=== PATIENT | male | born 1965 | race African-American/Black ===

== ENCOUNTER 2018-12-22 13:55 | Observation (INO) | payer MEDICARE, OTHER, MEDICAID ==
[2018-12-22] MEDS: DICLOFENAC SODIUM 1% GEL 100 GM TUBE TP
[2018-12-22] MEDS: ASPIRIN 325 MG TAB PO (15:10)
[2018-12-22] MEDS: SOD CHLORIDE 0.9% 1,000 ML IV (15:10)
[2018-12-22 15:16] LABS: ADD MAN DIFF? NO
[2018-12-22] MEDS: NICARDipine HCL 30 MG CAPSULE PO (15:20)
[2018-12-22 15:23] LABS: EOSINOPHILS # 0.1 10^3/ul (0.0-0.5); EOSINOPHILS % 2.5 % (0.0-7.0); HEMOGLOBIN 13.5 g/dl (14.0-18.0); LYMPHOCYTES # 1.8 10^3/ul (0.8-2.9); LYMPHOCYTES % 44.2 % (15.0-51.0); MEAN CORPUSCULAR HEMOGLOBIN 29.5 pg (29.0-33.0); MEAN CORPUSCULAR HGB CONC 32.1 g/dl (32.0-37.0); MEAN CORPUSCULAR VOLUME 91.9 fl (82.0-101.0); MEAN PLATELET VOLUME 10.6 fl (7.4-10.4); MONOCYTE # 0.2 10^3/ul (0.3-0.9); MONOCYTES % 5.7 % (0.0-11.0); NEUTROPHIL # 1.9 10^3/ul (1.6-7.5); NEUTROPHILS % 46.6 % (39.0-77.0); PLATELET COUNT 196 10^3/UL (140-415); RED BLOOD COUNT 4.57 10^6/ul (4.70-6.10)
[2018-12-22 15:23] LABS: WHITE BLOOD COUNT 4.1 10^3/ul (4.8-10.8)
[2018-12-22 15:32] LABS: HEMOGLOBIN A1C 5.1 % (0-5.9)
[2018-12-22 15:38] LABS: INR 0.89; PROTIME 12.2 Sec (11.9-14.9)
[2018-12-22 15:39] LABS: PARTIAL THROMBOPLASTIN TIME 31.6 Sec (23.0-35.0)
[2018-12-22 15:44] LABS: ALANINE AMINOTRANSFERASE 35 IU/L (13-69); ALBUMIN 4.3 g/dl (3.3-4.9); ALBUMIN/GLOBULIN RATIO 1.22; ALKALINE PHOSPHATASE 43 IU/L (42-121); ANION GAP 6 (5-13); ASPARTATE AMINO TRANSFERASE 35 IU/L (15-46); BILIRUBIN,INDIRECT 0.6 mg/dl (0-1.1); BILIRUBIN,TOTAL 0.6 mg/dl (0.2-1.3); BLOOD UREA NITROGEN 11 mg/dl (7-20); CALCIUM 9.7 mg/dl (8.4-10.2); CARBON DIOXIDE 35 mmol/L (21-31); CHLORIDE 101 mmol/L (97-110); CHOL/HDL RATIO 1.8 RATIO; CHOLESTEROL 115 mg/dl (100-200); CREATININE 0.19 mg/dl (0.61-1.24); Estimated GFR > 60 mL/min (>60); GLUCOSE 85 mg/dl (70-220); HDL CHOLESTEROL 62 mg/dl (28-71); LDL CHOLESTEROL,CALCULATED 36 mg/dl; SODIUM 142 mmol/L (135-144); TOTAL PROTEIN 7.8 g/dl (6.1-8.1); TRIGLYCERIDES 83 mg/dl (0-149)
[2018-12-22 15:55] LABS: TROPONIN-I < 0.012 ng/ml (0.000-0.120)
[2018-12-22] MEDS ORDERED: IOHEXOL 100 ML (16:14)
[2018-12-22] MEDS ORDERED: SOD CHLORIDE 0.9% 100 ML (16:14)
[2018-12-22] MEDS ORDERED: SOD CHLORIDE 0.9% 1,000 ML IV (18:28)
[2018-12-22] MEDS ORDERED: HYDROCODONE/APAP (5/325) TAB PO (18:30)
[2018-12-22] MEDS ORDERED: ONDANSETRON 4 MG INJ IV ×2 (18:30)
[2018-12-22] MEDS ORDERED: NACL 0.9% 3 ML SYG IV (18:30)
[2018-12-22] MEDS ORDERED: ACETAMINOPHEN 325 MG TAB PO ×2 (18:30)
[2018-12-22] MEDS ORDERED: hydrALAzine 20 MG INJ IV (19:00)
[2018-12-22] MEDS: ATORVASTATIN 80 MG TAB PO (22:17)
[2018-12-22] MEDS: OXYCODONE/ACETAMINOPHEN (10/325) TAB PO (22:18)
[2018-12-23 05:16] LABS: ADD MAN DIFF? NO
[2018-12-23 05:22] LABS: BASOPHIL # 0.1 10^3/ul (0.0-0.1); EOSINOPHILS # 0.1 10^3/ul (0.0-0.5); EOSINOPHILS % 1.9 % (0.0-7.0); HEMATOCRIT 43.8 % (42.0-52.0); LYMPHOCYTES # 3.1 10^3/ul (0.8-2.9); LYMPHOCYTES % 46.2 % (15.0-51.0); MEAN CORPUSCULAR HEMOGLOBIN 29.2 pg (29.0-33.0); MEAN CORPUSCULAR VOLUME 91.3 fl (82.0-101.0); MEAN PLATELET VOLUME 10.8 fl (7.4-10.4); MONOCYTE # 0.4 10^3/ul (0.3-0.9); MONOCYTES % 5.5 % (0.0-11.0); NEUTROPHIL # 3.1 10^3/ul (1.6-7.5); NEUTROPHILS % 45.3 % (39.0-77.0); PLATELET COUNT 206 10^3/UL (140-415)
[2018-12-23 05:22] LABS: WHITE BLOOD COUNT 6.8 10^3/ul (4.8-10.8)
[2018-12-23 05:55] LABS: ALANINE AMINOTRANSFERASE 29 IU/L (13-69); ALBUMIN 4.4 g/dl (3.3-4.9); ALBUMIN/GLOBULIN RATIO 1.41; ALKALINE PHOSPHATASE 42 IU/L (42-121); ANION GAP 7 (5-13); ASPARTATE AMINO TRANSFERASE 44 IU/L (15-46); BILIRUBIN,INDIRECT 0.9 mg/dl (0-1.1); BILIRUBIN,TOTAL 0.9 mg/dl (0.2-1.3); BLOOD UREA NITROGEN 9 mg/dl (7-20); CALCIUM 9.8 mg/dl (8.4-10.2); CARBON DIOXIDE 33 mmol/L (21-31); CHLORIDE 103 mmol/L (97-110); CREATININE 0.24 mg/dl (0.61-1.24); Estimated GFR > 60 mL/min (>60); GLUCOSE 81 mg/dl (70-220); MAGNESIUM 2.1 mg/dl (1.7-2.5); POTASSIUM 3.9 mmol/L (3.5-5.1); SODIUM 143 mmol/L (135-144); TOTAL PROTEIN 7.5 g/dl (6.1-8.1)
[2018-12-23] MEDS: ALBUTEROL 4 MG TAB PO (09:00)
[2018-12-23] MEDS: DICLOFENAC SODIUM 1% GEL 100 GM TUBE TP ×2 (09:16→21:12)
[2018-12-23] MEDS: ASPIRIN 81 MG TAB PO (09:16)
[2018-12-23] MEDS: ALBUTEROL 2 MG TAB PO (21:00)
[2018-12-23] MEDS ORDERED: ALBUTEROL 2 MG TAB PO (21:00)
[2018-12-23] MEDS: OXYCODONE/ACETAMINOPHEN (10/325) TAB PO (21:15)
[2018-12-23 22:36] LABS: ADD UMIC YES; UR ASCORBIC ACID NEGATIVE (NEGATIVE); UR BACTERIA FEW /HPF (NONE SEEN); UR BILIRUBIN (Dip) NEGATIVE (NEGATIVE); UR BLOOD (Dip) 3+ mg/dL (NEGATIVE); UR CLARITY SLIGHTLY CLOUDY (CLEAR); UR COLOR YELLOW (YELLOW); UR GLUCOSE (Dip) NEGATIVE (NEGATIVE); UR KETONES (Dip) 2+ mg/dL (NEGATIVE); UR LEUKOCYTE ESTERASE (Dip) NEGATIVE Leu/ul (NEGATIVE); UR MUCUS FEW /HPF (NONE SEEN); UR NITRITE (Dip) NEGATIVE (NEGATIVE); UR RBC 80 /HPF (0-5); UR TOTAL PROTEIN (Dip) 1+ mg/dl (NEGATIVE); UR UROBILINOGEN (Dip) NEGATIVE (NEGATIVE); UR WBC 2 /HPF (0-5)
[2018-12-23 22:49] LABS: AMPHETAMINE/METHAMPHETAMINE Negative (NEGATIVE); BARBITURATES Negative (NEGATIVE); BENZODIAZEPINES Negative (NEGATIVE); CANNABINOIDS Negative (NEGATIVE); COCAINE Negative (NEGATIVE); OPIATES Negative (NEGATIVE)
[2018-12-23] MEDS: ATORVASTATIN 80 MG TAB PO (23:04)
[2018-12-23] MEDS: traMADol 50 MG TAB PO (23:04)
[2018-12-24] MEDS: DICLOFENAC SODIUM 1% GEL 100 GM TUBE TP (09:00)
[2018-12-24] MEDS: ALBUTEROL 4 MG TAB PO (09:00)
[2018-12-24] MEDS: ASPIRIN 81 MG TAB PO (09:05)
[2018-12-24 12:00] LABS: ERYTHROCYTE SEDIMENTATION RATE 9 mm/Hr (0-20)
[2018-12-24 15:12] LABS: RAPID PLASMA REAGIN NONREACTIVE (NR)
[2018-12-26 16:57] LABS: PROTEIN C 97 % normal (70-180)
== END 2018-12-24 19:10 | disposition home or self-care (01) ==
LOC: E/R 13:55 → 6WM 18:28
DX: I63.9 Cerebral infarction, unspecified (principal); R47.01 Aphasia; R13.10 Dysphagia, unspecified; D64.9 Anemia, unspecified; E74.02 Pompe disease; Z99.3 Dependence on wheelchair
CPT/HCPCS: 36415; 70450; 70496; 70498; 70551; 71045; 80053; 80061; 80307; 81001; 81240; 83036; 83735; 83890; 84443; 84484; 85025; 85300; 85302; 85305; 85610; 85613; 85651; 85730; 86147; 86592; 92610; 93005; 93306; 93308; 93970; 99285-25; G0378